=== PATIENT | female | born 1985 | race Caucasian/White ===

== ENCOUNTER 2018-05-01 15:12 | Emergency (ER) | payer OTHER ==
--- NOTE | 2018-05-01 15:44 | C.PDOC ---
History Of Present Illness 33 y/o F presents with feeling of foreign object within pulp of R 1st toe x 2 days. Denies any particular moment in time when she felt she stepped on anything or trauma. She states it has appeared normal. She reports the pain as very minor and only a pinch. She attempted to scrape the skin today with a sterilized needle but did not find anything. Time Seen by Provider: 05/01/18 15:18 Chief Complaint (Nursing): Lower Extremity Problem/Injury Past Medical History Vital Signs: Last Vital Signs Temp 98.0 F 05/01/18 15:21 Pulse 77 05/01/18 15:21 Resp 18 05/01/18 15:21 BP 98/63 L 05/01/18 15:21 Pulse Ox 98 05/01/18 15:21 Family History: States: No Known Family Hx - Social History Hx Alcohol Use: No Hx Substance Use: No Review Of Systems Except As Marked, All Systems Reviewed And Found Negative. Constitutional: Negative for: Fever Skin: Negative for: Bruising Physical Exam - Physical Exam Additional Physical Exam Comments: Gen: NAD Head: NC/AT Eyes: No icterus ENT: MMM CV: Cap refill < 2 seconds Extremities: FROM of R toe and ankle, no deformity Skin: Small area of abraded skin on plantar pulp of 1st digit of R foot. No palpable object. Neuro: Moves all digits, sensation intact. ED Course And Treatment O2 Sat by Pulse Oximetry: 98 Medical Decision Making Medical Decision Making: Plan: XR for foreign body. XR shows no foreign body. Offered CT but given information on radiation risk, declined, will refer to podiatry. Disposition - Disposition Referrals: Podiatry Clinic [Outside] Disposition: HOME/ ROUTINE Disposition Time: 16:17 Condition: STABLE Instructions: Removal of Foreign Body in Skin Forms: [facility] (Serbian) - Clinical Impression Clinical Impression: Toe pain
[2018-05-01 15:55] VITALS: BP 98/63; PULSE 77; RESP 18; TEMP 98; O2SAT 98
--- NOTE | 2018-05-01 18:24 | RAD ---
PROCEDURE: Radiographs of the right great toe. TECHNIQUE:: AP radiograph of the right foot, with oblique and lateral view of the right great toe. COMPARISON: None. FINDINGS: BONES: No acute fracture or destructive bony lesion identified. JOINTS: Normal. SOFT TISSUES: No retained radiodense foreign body or emphysema soft tissue changes are identified throughout the digits including the plantar soft tissues of the distal great toe. OTHER FINDINGS: None. IMPRESSION: Unremarkable great toe radiographs including soft tissues which reflect no retained radiodense foreign body or emphysema soft tissue changes.
== END 2018-05-01 16:22 | disposition home or self-care (01) ==
LOC: C.ER 15:12
DX: M79.674 Pain in right toe(s) (principal)